=== PATIENT | male | born 1950 | race Caucasian/White ===

== ENCOUNTER → 2017-08-28 | Outpatient (CLI) | payer MEDICARE ==
[2014-09-04 16:45] VITALS: BP 144/84
[~2017-08-28] MED LIST: ACYCLOVIR800 MG PO; ANUSOL-HC SUPPO25 MG REC; ASPIRIN 81M81 MG/TA2 PO; CIALIS5 MG PO; COLACE100 M1 PO; GOOD NEIGHBOR500 M2 PO; LISINOPRIL10 MG PO; MELOXICAM7.5 MG PO; MULTI VITAMINS1 TAB PO; TERBINAFINE250 MG PO; VITAMIN D1000 IU PO; ZOCOR5 MG PO
[2017-08-29 07:31] LABS: ALBUMIN 3.8 g/dL (3.5-5.0); BUN/CREATININE RATIO 18.2 (6.0-26.0); CALCIUM 9.4 mg/dL (8.4-10.2); POTASSIUM 4.4 mmol/L (3.6-5.0); TOTAL BILIRUBIN 0.8 mg/dL (0.2-1.3); TOTAL PROTEIN 7.1 g/dL (6.3-8.2)
== END ==
LOC: LAB 09:50
PROVIDERS: Family Medicine
DX: I10 Essential (primary) hypertension (principal); E55.9 Vitamin D deficiency, unspecified; E78.00 Pure hypercholesterolemia, unspecified; Z83.3 Family history of diabetes mellitus; Z86.39 Personal history of other endocrine, nutritional and metabolic disease

== ENCOUNTER → 2017-09-22 | Outpatient (CLI) | payer MEDICARE ==
[2014-09-04 16:45] VITALS: BP 144/84
== END ==
LOC: CARDLAB 07:50 → CARDREHAB 07:50 → LAB 07:50 → CARDLAB 18:15
DX: I10 Essential (primary) hypertension (principal); Z12.5 Encounter for screening for malignant neoplasm of prostate; Z13.6 Encounter for screening for cardiovascular disorders; R00.1 Bradycardia, unspecified; E78.5 Hyperlipidemia, unspecified
CPT/HCPCS: A9500

== ENCOUNTER → 2018-09-26 | Outpatient (CLI) | payer MEDICARE ==
[2014-09-04 16:45] VITALS: BP 144/84
[2018-09-26 09:34] LABS: CALCIUM 9.2 mg/dL (8.4-10.2); TOTAL BILIRUBIN 0.8 mg/dL (0.2-1.3); TOTAL PROTEIN 7.3 g/dL (6.3-8.2)
== END ==
LOC: LAB 09-25 09:51
PROVIDERS: Family Medicine
DX: Z12.5 Encounter for screening for malignant neoplasm of prostate (principal); Z00.00 Encounter for general adult medical examination without abnormal findings; I10 Essential (primary) hypertension; E55.9 Vitamin D deficiency, unspecified; E78.00 Pure hypercholesterolemia, unspecified; Z83.3 Family history of diabetes mellitus

== ENCOUNTER → 2018-10-03 | Outpatient (CLI) | payer MEDICARE ==
[2014-09-04 16:45] VITALS: BP 144/84
== END ==
LOC: RAD 09:05
DX: R14.0 Abdominal distension (gaseous) (principal)

== ENCOUNTER 2018-10-17 14:00 | Outpatient (RCR) | payer MEDICARE ==
[2014-09-04 16:45] VITALS: BP 144/84
== END 2018-10-17 14:30 ==
LOC: PT 14:00
DX: M25.561 Pain in right knee (principal)

== ENCOUNTER → 2019-09-23 | Outpatient (CLI) | payer MEDICARE ==
[2014-09-04 16:45] VITALS: BP 144/84
[2019-09-23 09:34] LABS: ALBUMIN 3.9 g/dL (3.4-4.8)
[2019-09-23 09:35] LABS: CALCIUM 8.8 mg/dL (8.3-10.5)
[2019-09-23 09:37] LABS: TOTAL PROTEIN 7.2 g/dL (6.2-8.1)
[2019-09-23 09:38] LABS: TOTAL BILIRUBIN 0.8 mg/dL (0.2-1.2)
== END ==
LOC: LAB 08:56
PROVIDERS: Family Medicine
DX: Z00.00 Encounter for general adult medical examination without abnormal findings (principal); Z12.5 Encounter for screening for malignant neoplasm of prostate; I10 Essential (primary) hypertension; E78.00 Pure hypercholesterolemia, unspecified; E55.9 Vitamin D deficiency, unspecified; Z83.3 Family history of diabetes mellitus

== ENCOUNTER → 2020-06-04 | Outpatient (CLI) | payer MEDICARE ==
[2014-09-04 16:45] VITALS: BP 144/84
== END ==
LOC: LAB 11:13
DX: J02.9 Acute pharyngitis, unspecified (principal); Z20.828 Contact with and (suspected) exposure to other viral communicable diseases

== ENCOUNTER → 2020-09-14 | Outpatient (CLI) | payer MEDICARE ==
[2014-09-04 16:45] VITALS: BP 144/84
[2020-09-14 09:38] LABS: POTASSIUM 4.1 mmol/L (3.5-5.1)
[2020-09-14 09:39] LABS: CALCIUM 8.9 mg/dL (8.3-10.5)
[2020-09-14 09:41] LABS: TOTAL PROTEIN 7.3 g/dL (6.2-8.1)
== END ==
LOC: LAB 09:18
PROVIDERS: Family Medicine
DX: Z12.5 Encounter for screening for malignant neoplasm of prostate (principal); E78.00 Pure hypercholesterolemia, unspecified; I10 Essential (primary) hypertension

== ENCOUNTER → 2020-10-07 | Outpatient (CLI) | payer MEDICARE ==
[2014-09-04 16:45] VITALS: BP 144/84
[2020-10-08 05:15] LABS: HEMATOCRIT 50.9 % (42.0-52.0); HEMOGLOBIN 16.6 g/dL (13.5-18.0); MEAN PLATELET VOLUME 11.4 fl (7.4-10.4); RED BLOOD COUNT 5.76 M/mm3 (4.20-5.60); RED CELL DISTRIBUTION WIDTH 13.5 % (11.5-14.5); WHITE BLOOD COUNT 5.6 K/mm3 (4.8-10.8)
[2020-10-08 07:01] LABS: POTASSIUM 4.8 mmol/L (3.5-5.1)
[2020-10-08 07:02] LABS: ALBUMIN 4.1 g/dL (3.4-4.8)
[2020-10-08 07:03] LABS: CALCIUM 9.4 mg/dL (8.3-10.5)
[2020-10-08 07:04] LABS: TOTAL PROTEIN 7.5 g/dL (6.2-8.1)
[2020-10-08 07:06] LABS: TOTAL BILIRUBIN 0.8 mg/dL (0.2-1.2)
== END ==
LOC: LAB 11:10
PROVIDERS: Family Medicine
DX: Z12.5 Encounter for screening for malignant neoplasm of prostate (principal); K64.9 Unspecified hemorrhoids; R61 Generalized hyperhidrosis; E55.9 Vitamin D deficiency, unspecified; I10 Essential (primary) hypertension; E78.00 Pure hypercholesterolemia, unspecified

== ENCOUNTER → 2020-11-05 | Outpatient (CLI) | payer MEDICARE ==
[2014-09-04 16:45] VITALS: BP 144/84
== END ==
LOC: RAD 17:25
DX: H90.5 Unspecified sensorineural hearing loss (principal)
CPT/HCPCS: A9585

== ENCOUNTER → 2021-07-26 | Outpatient (CLI) | payer MEDICARE | LOC: LAB 14:49 | DX: R05.1 Acute cough (principal); Z20.822 Contact with and (suspected) exposure to COVID-19 ==

== ENCOUNTER → 2021-09-29 | Outpatient (CLI) | payer MEDICARE ==
[2021-09-29 09:31] LABS: CALCIUM 9.5 mg/dL (8.3-10.5)
[2021-09-29 09:33] LABS: TOTAL PROTEIN 7.4 g/dL (6.2-8.1)
== END ==
LOC: LAB 08:48
PROVIDERS: Family Medicine
DX: Z12.5 Encounter for screening for malignant neoplasm of prostate (principal); I10 Essential (primary) hypertension; E78.00 Pure hypercholesterolemia, unspecified; E55.9 Vitamin D deficiency, unspecified

== ENCOUNTER → 2022-10-06 | Outpatient (CLI) | payer MEDICARE ==
[2022-10-06 08:49] LABS: ALBUMIN 3.9 g/dL (3.4-4.8); POTASSIUM 4.1 mmol/L (3.5-5.1)
[2022-10-06 08:51] LABS: CALCIUM 9.4 mg/dL (8.3-10.5)
[2022-10-06 08:54] LABS: TOTAL BILIRUBIN 0.8 mg/dL (0.2-1.2)
== END ==
LOC: LAB 08:13
PROVIDERS: Family Medicine
DX: Z12.5 Encounter for screening for malignant neoplasm of prostate (principal); E78.00 Pure hypercholesterolemia, unspecified; I10 Essential (primary) hypertension; E55.9 Vitamin D deficiency, unspecified; Z83.3 Family history of diabetes mellitus

== ENCOUNTER → 2023-10-09 | Outpatient (CLI) | payer MEDICARE ==
[2023-10-09 09:01] LABS: CALCIUM 9.2 mg/dL (8.3-10.5)
== END ==
LOC: LAB 08:27
PROVIDERS: Family Medicine
DX: Z12.5 Encounter for screening for malignant neoplasm of prostate (principal); I10 Essential (primary) hypertension; E78.00 Pure hypercholesterolemia, unspecified; E55.9 Vitamin D deficiency, unspecified

== ENCOUNTER → 2024-04-11 | Outpatient (CLI) | payer MEDICARE ==
[2024-04-11 09:51] LABS: CALCIUM 9.6 mg/dL (8.3-10.5)
== END ==
LOC: LAB 09:18
PROVIDERS: Family Medicine
DX: I10 Essential (primary) hypertension (principal); E78.2 Mixed hyperlipidemia

== ENCOUNTER 2024-05-26 18:51 | Emergency (ER) | payer MEDICARE ==
[~2024-05-26] VITALS: Ht 182.9 cm; Wt 90.9 kg
[2024-05-26] MEDS ORDERED: ROSUVASTATIN CA10 MG PO (19:08)
[2024-05-26] MEDS ORDERED: LISINOPRIL20 MG PO (19:09)
[2024-05-26] MEDS ORDERED: FAMOTIDINE20 MG PO (19:10)
[2024-05-26] MEDS ORDERED: AMLODIPINE BESYL5 MG PO (19:10)
[2024-05-26] MEDS ORDERED: FISH OIL 1,001000 MG PO (19:12)
[2024-05-26 19:53] LABS: BASO # 0.01 K/mm3 (0.02-0.10); EOS # 0.15 K/mm3 (0.04-0.40); EOS % 2.4 % (0.0-4.0); HEMATOCRIT 46.2 % (42.0-52.0); HEMOGLOBIN 15.7 g/dL (13.5-18.0); MEAN CELL VOLUME 88 fl (78-100); MEAN CORPUSCULAR HEMOGLOBIN 30 pg (27-31); MEAN CORPUSCULAR HGB CONC 34 g/dL (33-37); MEAN PLATELET VOLUME 10.7 fl (7.4-10.4); MONO # 0.64 K/mm3 (0.20-0.80); NEU # 3.98 K/mm3 (1.40-6.50); PLATELET COUNT 148 K/mm3 (130-400); RED BLOOD COUNT 5.24 M/mm3 (4.20-5.60); WHITE BLOOD COUNT 6.3 K/mm3 (4.8-10.8)
[2024-05-26 19:59] LABS: CALCIUM 9.3 mg/dL (8.3-10.5)
[2024-05-26 20:00] LABS: TOTAL PROTEIN 7.2 g/dL (6.2-8.1)
[2024-05-26 20:02] LABS: TOTAL BILIRUBIN 0.6 mg/dL (0.2-1.2)
[2024-05-26 20:31] LABS: D-DIMER 8.02 mg/L FEU (0.15-0.50)
[2024-05-26] MEDS ORDERED: XARELTO STARTER20 MG PO (20:51)
[2024-05-26] MEDS ORDERED: Rivaroxaban 15 MG TAB PO ONE (21:00)
[2024-05-26 21:05] VITALS: BP 153/97
== END 2024-05-26 21:05 | disposition home or self-care (01) ==
LOC: ED 18:51
PROVIDERS: Physician Assistant
DX: I82.402 Acute embolism and thrombosis of unspecified deep veins of left lower extremity (principal); I73.9 Peripheral vascular disease, unspecified; R79.1 Abnormal coagulation profile

== ENCOUNTER → 2024-05-28 | Outpatient (CLI) | payer MEDICARE ==
[~2024-05-28] MED LIST changes: +AMLODIPINE BESYL5 MG PO; +FAMOTIDINE20 MG PO; +FISH OIL 1,001000 MG PO; +Iohexol 350 - 100 ML VIAL IV ONE; +LISINOPRIL20 MG PO; +ROSUVASTATIN CA10 MG PO; +ROXICODONE 55 MG/TAB PO; +SENNA PLUS 50 M1 TA2 PO; +TYLENOL ARTHRI650 M2 PO; +XARELTO STARTER20 MG PO
== END ==
LOC: RAD 09:16
DX: I70.212 Atherosclerosis of native arteries of extremities with intermittent claudication, left leg (principal); I82.409 Acute embolism and thrombosis of unspecified deep veins of unspecified lower extremity
CPT/HCPCS: Q9967

== ENCOUNTER 2024-06-04 09:19 | Emergency (ER) | payer MEDICARE ==
[~2024-06-04] VITALS: Ht 195.6 cm; Wt 90.9 kg
[~2024-06-04 09:19] MED LIST changes: -Iohexol 350 - 100 ML VIAL IV ONE; -ROXICODONE 55 MG/TAB PO; -SENNA PLUS 50 M1 TA2 PO; -TYLENOL ARTHRI650 M2 PO
[2024-06-04 09:45] LABS: BASO # 0.02 K/mm3 (0.02-0.10); EOS # 0.22 K/mm3 (0.04-0.40); EOS % 3.6 % (0.0-4.0); HEMATOCRIT 36.7 % (42.0-52.0); HEMOGLOBIN 12.3 g/dL (13.5-18.0); MEAN CELL VOLUME 89 fl (78-100); MEAN CORPUSCULAR HEMOGLOBIN 30 pg (27-31); MEAN CORPUSCULAR HGB CONC 34 g/dL (33-37); MEAN PLATELET VOLUME 10.4 fl (7.4-10.4); MONO # 0.79 K/mm3 (0.20-0.80); NEU # 3.39 K/mm3 (1.40-6.50); PLATELET COUNT 157 K/mm3 (130-400); RED BLOOD COUNT 4.13 M/mm3 (4.20-5.60); WHITE BLOOD COUNT 6.1 K/mm3 (4.8-10.8)
[2024-06-04 09:55] LABS: CALCIUM 8.4 mg/dL (8.3-10.5)
[2024-06-04 09:58] LABS: TOTAL BILIRUBIN 0.9 mg/dL (0.2-1.2)
[2024-06-04] MEDS ORDERED: Iohexol 350 - 100 ML VIAL IV ONE (10:01)
[2024-06-04 10:03] LABS: PROTHROMBIN TIME 10.3 SECONDS (9.0-12.0)
[2024-06-04 10:17] LABS: ALBUMIN 3.6 g/dL (3.4-4.8)
[2024-06-04 10:20] LABS: TOTAL PROTEIN 6.4 g/dL (6.2-8.1)
[2024-06-04] MEDS ORDERED: TYLENOL ARTHRI650 M2 PO (12:32)
[2024-06-04] MEDS ORDERED: ROXICODONE 55 MG/TAB PO (12:34)
[2024-06-04] MEDS ORDERED: SENNA PLUS 50 M1 TA2 PO (12:35)
[2024-06-04] MEDS ORDERED: Piperacillin/Tazobactam Sodium 3.375 GM in NS 100 ML IV ONE (12:45)
[2024-06-04 13:38] VITALS: BP 120/74
== END 2024-06-04 13:15 | disposition other institution (70) ==
LOC: ED 09:19
PROVIDERS: Physician Assistant
DX: L03.116 Cellulitis of left lower limb (principal); I72.4 Aneurysm of artery of lower extremity
CPT/HCPCS: J2543; J3370; J7050; Q9967

== ENCOUNTER 2024-06-04 12:35 | Inpatient (IN) | payer MEDICARE ==
[~2024-06-04] VITALS: Ht 182.9 cm; Wt 104.2 kg
[~2024-06-04 12:35] MED LIST changes: +ROXICODONE 55 MG/TAB PO; +SENNA PLUS 50 M1 TA2 PO; +TYLENOL ARTHRI650 M2 PO
[2024-06-04 13:50] VITALS: BP 121/82
[2024-06-04] MEDS ORDERED: Acetaminophen 325 MG TAB PO PRN (14:00)
[2024-06-04] MEDS ORDERED: Bisacodyl 5 MG TAB PO PRN (14:00)
[2024-06-04] MEDS ORDERED: oxyCODONE 5 MG TAB PO PRN (15:45)
[2024-06-04] MEDS ORDERED: Piperacillin/Tazobactam Sodium 3.375 GM in NS 100 ML IV SCH (19:00)
[2024-06-04 20:14] VITALS: BP 138/81
[2024-06-04] MEDS ORDERED: Famotidine 20 MG TAB PO SCH (21:00)
[2024-06-04] MEDS ORDERED: Lisinopril 20 MG TAB PO SCH (21:00)
[2024-06-04 22:30] VITALS: BP 117/71
[2024-06-05] MEDS ORDERED: Calcium Carbonate Chewable 500 MG TAB PO ONE (01:00)
[2024-06-05 02:58] VITALS: BP 104/67
[2024-06-05] MEDS ORDERED: Vancomycin 1 G in NS 250 ML IV SCH (06:00)
[2024-06-05 06:54] LABS: BASO # 0.02 K/mm3 (0.02-0.10); EOS # 0.24 K/mm3 (0.04-0.40); EOS % 4.2 % (0.0-4.0); HEMATOCRIT 34.3 % (42.0-52.0); HEMOGLOBIN 11.4 g/dL (13.5-18.0); LYMPH# 1.74 K/mm3 (1.50-4.00); MEAN CELL VOLUME 90 fl (78-100); MEAN CORPUSCULAR HEMOGLOBIN 30 pg (27-31); MEAN CORPUSCULAR HGB CONC 33 g/dL (33-37); MEAN PLATELET VOLUME 10.6 fl (7.4-10.4); MONO # 0.73 K/mm3 (0.20-0.80); NEU # 2.99 K/mm3 (1.40-6.50); PLATELET COUNT 156 K/mm3 (130-400); RED BLOOD COUNT 3.82 M/mm3 (4.20-5.60); WHITE BLOOD COUNT 5.8 K/mm3 (4.8-10.8)
[2024-06-05 07:13] LABS: ALBUMIN 3.2 g/dL (3.4-4.8)
[2024-06-05 07:14] LABS: CALCIUM 8.5 mg/dL (8.3-10.5)
[2024-06-05 07:15] LABS: TOTAL PROTEIN 5.8 g/dL (6.2-8.1)
[2024-06-05 07:17] LABS: TOTAL BILIRUBIN 0.8 mg/dL (0.2-1.2)
[2024-06-05 07:35] VITALS: BP 125/74
[2024-06-05] MEDS ORDERED: Sennosides/Docusate 8.6-50 MG TAB PO SCH ×2 (09:00→21:00)
[2024-06-05] MEDS ORDERED: Multivitamin TAB PO SCH (09:00)
[2024-06-05] MEDS ORDERED: amLODIPine 5 MG TAB PO SCH (09:00)
[2024-06-05] MEDS ORDERED: Omega-3 Fatty Acid Esters 1,000 MG CAP PO SCH (09:00)
[2024-06-05 11:29] VITALS: BP 121/72
[2024-06-05 15:34] VITALS: BP 112/71
[2024-06-05 19:10] VITALS: BP 114/68
[2024-06-05] MEDS ORDERED: Iohexol 350 - 100 ML VIAL IV ONE (19:50)
[2024-06-05 23:38] VITALS: BP 142/87
[2024-06-06 03:00] VITALS: BP 121/71
[2024-06-06 06:25] LABS: BASO # 0.02 K/mm3 (0.02-0.10); EOS # 0.27 K/mm3 (0.04-0.40); EOS % 4.7 % (0.0-4.0); HEMATOCRIT 33.2 % (42.0-52.0); HEMOGLOBIN 11.2 g/dL (13.5-18.0); LYMPH# 1.42 K/mm3 (1.50-4.00); MEAN CELL VOLUME 90 fl (78-100); MEAN CORPUSCULAR HEMOGLOBIN 30 pg (27-31); MEAN CORPUSCULAR HGB CONC 34 g/dL (33-37); MEAN PLATELET VOLUME 9.9 fl (7.4-10.4); MONO # 0.64 K/mm3 (0.20-0.80); NEU # 3.34 K/mm3 (1.40-6.50); PLATELET COUNT 160 K/mm3 (130-400); RED BLOOD COUNT 3.68 M/mm3 (4.20-5.60); WHITE BLOOD COUNT 5.7 K/mm3 (4.8-10.8)
[2024-06-06 06:35] LABS: ALBUMIN 3.3 g/dL (3.4-4.8)
[2024-06-06 06:36] LABS: CALCIUM 8.5 mg/dL (8.3-10.5)
[2024-06-06 06:37] LABS: TOTAL PROTEIN 5.9 g/dL (6.2-8.1)
[2024-06-06 06:39] LABS: TOTAL BILIRUBIN 0.8 mg/dL (0.2-1.2)
[2024-06-06 07:15] VITALS: BP 114/73
[2024-06-06 13:08] VITALS: BP 117/72
[2024-06-06] MEDS ORDERED: Linezolid 600 MG TAB PO SCH (17:00)
[2024-06-06 19:18] VITALS: BP 107/68
[2024-06-07 00:53] VITALS: BP 122/79
[2024-06-07 05:48] LABS: BASO # 0.02 K/mm3 (0.02-0.10); EOS # 0.27 K/mm3 (0.04-0.40); EOS % 4.4 % (0.0-4.0); HEMATOCRIT 34.3 % (42.0-52.0); HEMOGLOBIN 11.6 g/dL (13.5-18.0); LYMPH# 1.62 K/mm3 (1.50-4.00); MEAN CELL VOLUME 90 fl (78-100); MEAN CORPUSCULAR HEMOGLOBIN 31 pg (27-31); MEAN CORPUSCULAR HGB CONC 34 g/dL (33-37); MEAN PLATELET VOLUME 10.3 fl (7.4-10.4); MONO # 0.65 K/mm3 (0.20-0.80); PLATELET COUNT 182 K/mm3 (130-400); RED CELL DISTRIBUTION WIDTH 12.8 % (11.5-14.5); WHITE BLOOD COUNT 6.1 K/mm3 (4.8-10.8)
[2024-06-07 06:12] LABS: ALBUMIN 3.3 g/dL (3.4-4.8)
[2024-06-07 06:13] LABS: CALCIUM 8.5 mg/dL (8.3-10.5)
[2024-06-07 06:15] LABS: TOTAL PROTEIN 6.1 g/dL (6.2-8.1)
[2024-06-07 06:16] LABS: TOTAL BILIRUBIN 0.8 mg/dL (0.2-1.2)
[2024-06-07 07:15] VITALS: BP 114/72
[2024-06-07 15:17] VITALS: BP 110/70
[2024-06-07 19:00] VITALS: BP 132/80
[2024-06-07] MEDS ORDERED: Cefdinir 300 MG CAP PO SCH (21:00)
[2024-06-08 01:11] VITALS: BP 127/80
[2024-06-08 07:14] VITALS: BP 112/73
[2024-06-08] MEDS ORDERED: CEFDINIR300 MG PO (10:36)
[2024-06-08] MEDS ORDERED: LINEZOLID600 MG PO (10:37)
== END 2024-06-08 11:50 | disposition home or self-care (01) | DRG 863 ==
LOC: MED/SURG 12:35
PROVIDERS: ADMIT Physician Assistant
DX: T81.49XA Infection following a procedure, other surgical site, initial encounter (principal); L03.116 Cellulitis of left lower limb; I77.1 Stricture of artery; I10 Essential (primary) hypertension; E78.5 Hyperlipidemia, unspecified; J30.9 Allergic rhinitis, unspecified; H91.93 Unspecified hearing loss, bilateral; Z79.82 Long term (current) use of aspirin; Z79.891 Long term (current) use of opiate analgesic
CPT/HCPCS: J2543; J3370; J7050; Q9967

== ENCOUNTER → 2024-11-01 | Outpatient (CLI) | payer MEDICARE ==
[~2024-11-01] MED LIST changes: +CEFDINIR300 MG PO; +LINEZOLID600 MG PO
[2024-11-01 10:11] LABS: CALCIUM 9.6 mg/dL (8.3-10.5)
[2024-11-01 22:39] LABS: CREATININE OTHER SOURCE 176 mg/dL (47-110)
== END ==
LOC: LAB 09:49
PROVIDERS: Family Medicine
DX: Z12.5 Encounter for screening for malignant neoplasm of prostate (principal); I10 Essential (primary) hypertension